=== PATIENT | male | born 1960 | race Caucasian/White ===

== ENCOUNTER → 2021-12-10 | Day surgery (SDC) | payer OTHER ==
[2021-12-08 10:23] LABS: BASOPHILS % (AUTO) 0.6 % (0.0-2.0); EOSINOPHILS % (AUTO) 2.1 % (1.0-6.0); HEMATOCRIT 46.6 % (41-53); HEMOGLOBIN 15.6 g/dL (13.5-17.5); LYMPHOCYTES # (AUTO) 0.8 K/uL (1.0-4.8); LYMPHOCYTES % (AUTO) 16.8 % (22.0-44.0); MEAN CORPUSCULAR HEMOGLOBIN 28.7 pg (26.0-34.0); MEAN CORPUSCULAR HGB CONC 33.4 G/dL (31.0-37.0); MEAN CORPUSCULAR VOLUME 86 fL (80-100); MONOCYTES # (AUTO) 0.4 K/uL (0.1-1.0); MONOCYTES % (AUTO) 9.3 % (2.0-9.0); NEUTROPHILS # (AUTO) 3.4 K/uL (1.8-7.7); NEUTROPHILS % (AUTO) 71.2 % (40.0-70.0); PLATELET COUNT (AUTO) 169 K/uL (150-450); RED BLOOD CELL COUNT(AUTO) 5.43 MIL/uL (4.50-5.90); RED CELL DISTRIBUTION WIDTH 16.1 % (11.5-14.5)
[2021-12-08 10:36] LABS: CREATININE 1.52 mg/dL (0.60-1.30); POTASSIUM 5.2 mmol/L (3.5-5.1)
[2021-12-08 10:37] LABS: COVID AG,FIA SOURCE NASAL SWAB
[2021-12-08 10:38] LABS: PROTHROMBIN TIME 10.8 SEC (9.4-11.6)
[~2021-12-10] VITALS: Ht 180.3 cm; Wt 90.9 kg
[~2021-12-10] MED LIST: 0.9% SODIUM CHLORIDE 10 ML SYRINGE IVP ONE; ACETAMINOPHEN 325 MG TABLET PO PRN; ALPR-341 PO; CARV25 PO; CELE200 PO; CHOL-35 PO; CLON-592 PO; DIAZEPAM 10 MG TABLET PO ONE; DiphenhydrAMINE HCL 50 MG CAPSULE ONE; DiphenhydrAMINE HCL 50 MG CAPSULE PO ONE; FLUO20CA36 PO; FentaNYL CITRATE PF 100 MCG/2 ML VIAL IVP ONE; FentaNYL CITRATE PF 100 MCG/2 ML VIAL ONE; GABA-1181 PO; HEPARIN SODIUM 1000 UNITS/NS 1,000 ML IARTER ONE; HEPARIN SODIUM 1000 UNITS/NS 1,000 ML ONE; HEPARIN SODIUM,PORCINE 1,000 UNITS/ML 10 ML VIAL ONE; HEPARIN SODIUM,PORCINE 5,000 UNITS/ML VIAL IVP ONE; HYDR-4584 PO; IOHEXOL 300 MG/ML 100 ML VIAL IARTER ONE; IOHEXOL 300 MG/ML 100 ML VIAL ONE; IOHEXOL 300 MG/ML 150 ML VIAL IARTER ONE; IOHEXOL 300 MG/ML 150 ML VIAL ONE; IOHEXOL 300 MG/ML 50 ML VIAL IARTER ONE; IOHEXOL 300 MG/ML 50 ML VIAL ONE; LIDOCAINE 1% 30 ML/SOD BICARB 8.4% 4 ML SQ ONE; LIDOCAINE/PF 1% 30 ML VIAL ONE; MIDAZOLAM HCL 2 MG/2 ML VIAL IVP ONE; MIDAZOLAM HCL 2 MG/2 ML VIAL ONE; NITROGLYCERIN 50 MG/D5% WATER 250 ML ONE; NITROGLYCERIN/D5W 50 MG/250 ML IV BOTTLE IARTER ONE; OMEG-136 PO; PHENYLEPHRINE 200 MG/D5%-WATER 250 ML IV ONE; ROSU20TA73 PO; SODIUM BICARBONATE 50 MEQ/50 ML VIAL ONE; SODIUM CHLORIDE 0.9% 500 ML IV ONE; VERAPAMIL HCL 2.5 MG/ML 2 ML VIAL IARTER ONE; VERAPAMIL HCL 2.5 MG/ML 2 ML VIAL ONE
[2021-12-10 09:40] VITALS: BP 142/76
== END | disposition home or self-care (01) ==
LOC: CATHLAB 05:12
PROVIDERS: ATTEND Internal Medicine Cardiovascular Disease
DX: I25.10 Atherosclerotic heart disease of native coronary artery without angina pectoris (principal); I10 Essential (primary) hypertension; F41.0 Panic disorder [episodic paroxysmal anxiety]; Z20.822 Contact with and (suspected) exposure to COVID-19; Z79.899 Other long term (current) drug therapy; Z79.82 Long term (current) use of aspirin; Z79.01 Long term (current) use of anticoagulants; Z88.8 Allergy status to other drugs, medicaments and biological substances; Z98.890 Other specified postprocedural states; Z87.891 Personal history of nicotine dependence; Z80.1 Family history of malignant neoplasm of trachea, bronchus and lung; Z80.49 Family history of malignant neoplasm of other genital organs
CPT/HCPCS: 36415; 80048; 85025; 85610; 85730; 87426; 93005; 93460; 99152; 99153; C9803; J1644 ×2; J2250; J2370; J3010; J3490 ×4; Q9967 ×3